=== PATIENT | male | born 1990 | race Hispanic/Latino ===

== ENCOUNTER 2018-08-02 12:12 | Emergency (ER) | payer SELFPAY | END 2018-08-02 13:50 | disposition home or self-care (01) | LOC: EDH 12:12 | DX: L03.031 Cellulitis of right toe (principal); Z72.0 Tobacco use ==

== ENCOUNTER 2020-06-01 21:38 | Emergency (ER) | payer OTHER ==
[2020-06-01] MEDS ORDERED: KETOROLAC TROMETHAMINE 60 MG/2 ML VIAL ONE (22:22)
== END 2020-06-01 23:26 | disposition home or self-care (01) ==
LOC: EDH 21:38
DX: S39.012A Strain of muscle, fascia and tendon of lower back, initial encounter (principal); Z72.0 Tobacco use; V89.2XXA Person injured in unspecified motor-vehicle accident, traffic, initial encounter; Y93.89 Activity, other specified; Y92.488 Other paved roadways as the place of occurrence of the external cause; Y99.8 Other external cause status
CPT/HCPCS: 72100; 96372; 99283; J1885

== ENCOUNTER 2020-10-02 11:21 | Emergency (ER) | payer OTHER ==
[2020-10-02 16:13] LABS: APPEARANCE,URINE Clear (CLEAR); BILIRUBIN,URINE Negative (NEGATIVE); COLOR,URINE Yellow (YELLOW); GLUCOSE, URINE (UA) Negative (NEGATIVE); KETONES,URINE 40 mg/dL (NEGATIVE); LEUKOCYTE ESTERASE ,URINE Small (NEGATIVE); NITRATE,URINE Negative (NEGATIVE); OCCULT BLOOD,URINE Negative (NEGATIVE); PROTEIN,URINE Trace mg/dL (NEGATIVE)
[2020-10-02 16:22] LABS: BACTERIA,URINE Rare /HPF (None Seen); RBC,URINE 0-1 /HPF (0-1)
[2020-10-02 16:23] LABS: MUCUS,URINE Moderate LPF (None Seen); SQUAMOUS EPITHELIAL CELL,UR Rare /HPF (0-2)
== END 2020-10-02 17:34 | disposition home or self-care (01) ==
LOC: EDH 11:21
DX: S30.21XA Contusion of penis, initial encounter (principal); X58.XXXA Exposure to other specified factors, initial encounter; Y93.89 Activity, other specified; Y92.89 Other specified places as the place of occurrence of the external cause; Y99.9 Unspecified external cause status
CPT/HCPCS: 76870; 81001

== ENCOUNTER 2021-04-11 15:08 | Emergency (ER) | payer SELFPAY ==
[~2021-04-11] VITALS: Ht 172.7 cm; Wt 90.7 kg
[2021-04-11] MEDS ORDERED: BENZ-17 PO (15:38)
[2021-04-11 15:45] VITALS: BP 138/78
== END 2021-04-11 15:59 | disposition home or self-care (01) ==
LOC: EDH 15:08
DX: B34.9 Viral infection, unspecified (principal); Z79.899 Other long term (current) drug therapy
CPT/HCPCS: 71045

== ENCOUNTER 2021-09-21 13:01 | Emergency (ER) | payer OTHER ==
[~2021-09-21] VITALS: Ht 172.7 cm; Wt 90.7 kg
[~2021-09-21 13:01] MED LIST: BENZ-17 PO
[2021-09-21 13:04] VITALS: BP 132/88
== END 2021-09-21 15:50 | disposition left against medical advice (07) ==
LOC: EDH 13:01
DX: R05.9 Cough, unspecified (principal); R09.81 Nasal congestion; Z53.21 Procedure and treatment not carried out due to patient leaving prior to being seen by health care provider
CPT/HCPCS: 71045; 87635; 87804 ×2; C9803

== ENCOUNTER 2022-03-18 15:16 | Emergency (ER) | payer OTHER ==
[~2022-03-18] VITALS: Ht 172.7 cm; Wt 90.7 kg
[2022-03-18 18:39] LABS: BASOPHILS % (AUTO) 0.2 % (0.0-5.0); EOSINOPHILS % (AUTO) 0.1 % (0.0-8.0); HEMATOCRIT 44.2 % (42-54); LYMPHOCYTES % (AUTO) 14.6 % (21.0-51.0); MEAN CORPUSCULAR HEMOGLOBIN 29.3 pg (27.0-33.0); MEAN CORPUSCULAR HGB CONC 33.9 g/dL (32.0-36.0); MEAN CORPUSCULAR VOLUME 86.3 fL (79-99); MONOCYTES % (AUTO) 9.3 % (3.0-13.0); NEUTROPHILS % (AUTO) 75.3 % (40.0-77.0); PLATELET COUNT (AUTO) 320 K/uL (130-400); RED BLOOD CELL COUNT(AUTO) 5.12 MIL/uL (4.50-6.20); RED CELL DISTRIBUTION WIDTH 12.7 % (11.0-15.5); WHITE BLOOD COUNT (AUTO) 17.1 K/uL (4.8-10.8)
[2022-03-18 18:51] LABS: CREATININE 1.1 mg/dL (0.5-1.5)
[2022-03-18 19:00] LABS: ALBUMIN 4.3 g/dL (3.5-5.0); TOTAL PROTEIN, SERUM 7.8 g/dL (6.0-8.3)
[2022-03-18 19:05] VITALS: BP 145/95
[2022-03-18 19:48] LABS: B-TYPE NATRIURETIC PEPTIDE 7 pg/mL (0-100)
== END 2022-03-18 19:11 | disposition home or self-care (01) ==
LOC: EDH 15:16
DX: R07.89 Other chest pain (principal); F14.10 Cocaine abuse, uncomplicated; F17.200 Nicotine dependence, unspecified, uncomplicated
CPT/HCPCS: 36415; 71045; 80053; 83880; 84443; 84484; 85025; 93005